=== PATIENT | female | born 1945 | race Caucasian/White ===

== ENCOUNTER → 2016-07-03 | Outpatient (REF) | payer MEDICARE, OTHER ==
[~2016-07-03] MED LIST: ATIV1TAB2; CALCCHW12; OMEP20TA7; SIMV10TA2; TEMA30CA; THERGRAN; VICO5TAB
== END | disposition home or self-care (01) ==
LOC: M LAB REF 12:17
PROVIDERS: ATTEND Internal Medicine Medical Oncology
DX: C50.919 Malignant neoplasm of unspecified site of unspecified female breast (principal)

== ENCOUNTER → 2016-08-21 | Outpatient (REF) | payer MEDICARE, OTHER | LOC: M LAB REF 13:01 | PROVIDERS: ATTEND Internal Medicine Medical Oncology | DX: C50.919 Malignant neoplasm of unspecified site of unspecified female breast (principal) ==

== ENCOUNTER → 2016-09-03 | Outpatient (CLI) | payer MEDICARE, OTHER ==
[~2016-09-03] MED LIST changes: +GASTROGRAFIN SOLUTION 30ML (Q9963) As Ordered ONE; +ISOVUE-370 76% 100ML VIAL (Q9967) As Ordered ONE
--- NOTE | 2016-09-03 10:21 | REP ---
CT of the chest with IV contrast, CT pulmonary angiography: Comparison 11/29/2015. There are no lung masses or nodules. There are no pleural effusions. There are patchy areas of ground-glass densities throughout the lung bermudez bilaterally, as an interval change. This is nonspecific and could represent airspace disease such as ARDS could be artifact from incomplete inspiratory effort. Cardiomegaly is again noted, unchanged from the prior studies. There is a small pericardial effusion versus pericardial thickening measuring up to 1.1 cm depth posteriorly on the left. There are a few borderline enlarged mediastinal nodes, not significantly changed. There are no emboli in the pulmonary trunk or in the central pulmonary arteries. There are no emboli in the pulmonary lobe or segment branches. Upper abdomen: The hepatic parenchyma, pancreas and spleen are unremarkable. Surgical clips in the gallbladder fossa. The adrenals and renal upper poles are unremarkable except for a small renal cortical cyst on the right, unchanged. Impression: There are no pulmonary emboli. There are scattered areas of ground-glass density as described in the body of the report, nonspecific, incomplete inspiratory effort versus air space disease such as a ARDS. No lung masses or nodules are identified. No pleural effusions. Chronic cardiomegaly is again noted. There is pericardial thickening versus pericardial effusion measuring up to 1.1 cm posteriorly on the left. There are a few borderline enlarged mediastinal nodes, unchanged from prior studies. Signed by Fox Garland MD 09/03/2016 10:13 A
--- NOTE | 2016-09-03 10:31 | REP ---
CT abdomen and pelvis with IV and oral contrast: Comparisons are 03/29/2014 and 10/08/2013. The comparison studies include the abdomen but not the pelvis. There is a also includes CT of the abdomen without the pelvis prior IV contrast. The hepatic parenchyma is homogeneous. There is no evidence of hepatic metastatic disease. There are surgical clips in the gallbladder fossa. Pancreas and spleen are normal size, homogeneous and unremarkable. There is a splenic artery aneurysm measuring 1.2 cm, unchanged. The adrenals are normal size unremarkable. The kidneys are unremarkable. The abdominal aorta is unremarkable. There is no bowel distension. No mesenteric adenopathy. There is no ascites. Pelvis: There is a hysterectomy. The vaginal cuff and adnexa are unremarkable. There is no pelvic adenopathy or ascites. There is sigmoid colon diverticulosis without diverticulitis. The bladder is unremarkable. There are no lytic, blastic or destructive skeletal changes. There is multilevel degenerative disc disease in the lumbar spine. Impression: No evidence of adenopathy, metastatic disease or ascites. Stable splenic artery aneurysm. Cholecystectomy and hysterectomy, unchanged. Diverticulosis without diverticulitis. Signed by Fox Garland MD 09/03/2016 10:22 A
== END ==
LOC: M RAD 08:04
PROVIDERS: ATTEND Internal Medicine Medical Oncology
DX: Z90.49 Acquired absence of other specified parts of digestive tract (principal); Z90.710 Acquired absence of both cervix and uterus; I72.9 Aneurysm of unspecified site; K57.90 Diverticulosis of intestine, part unspecified, without perforation or abscess without bleeding; I51.7 Cardiomegaly; J98.4 Other disorders of lung
CPT/HCPCS: 71275; 74178; Q9963; Q9967

== ENCOUNTER → 2016-09-04 | Outpatient (REF) | payer MEDICARE, OTHER ==
[~2016-09-04] MED LIST changes: -GASTROGRAFIN SOLUTION 30ML (Q9963) As Ordered ONE; -ISOVUE-370 76% 100ML VIAL (Q9967) As Ordered ONE
== END ==
LOC: M LAB REF 12:14
PROVIDERS: ATTEND Internal Medicine Medical Oncology
DX: C50.919 Malignant neoplasm of unspecified site of unspecified female breast (principal)

== ENCOUNTER → 2016-12-02 | Outpatient (CLI) | payer MEDICARE, OTHER ==
--- NOTE | 2016-12-02 10:58 | REP ---
CT of the chest without IV contrast: Comparison is 08/24/2016. The patchy ground-glass densities noted throughout the lung bermudez bilaterally on the comparison study have resolved. No persisting ground-glass densities. There are no acute infiltrates or effusions. There are no masses or nodules. There are borderline enlarged paratracheal nodes, unchanged. The azygos node measures 14 millimeters short axis. This measured 13 mm on 05/12/2015. The unenhanced thoracic aorta is unremarkable except for occasional calcified atheroma. Cardiac size is enlarged, unchanged. There is focal pericardial thickening at the cardiac apex versus a small pericardial effusion. In the upper abdomen. The unenhanced hepatic and visualized portion of the hepatic parenchyma is homogeneous. There are surgical clips in the gallbladder fossa. The unenhanced pancreas and spleen are unremarkable. The adrenals are unremarkable. Impression: The multiple ground-glass lung parenchymal densities identified previously have resolved. There are no nodules, masses, infiltrates or effusions. There is chronic cardiomegaly. There are borderline enlarged mediastinal nodes, unchanged. Focal pericardial thickening at the cardiac apex versus small pericardial effusion. Signed by Fox Garland MD 12/02/2016 10:50 A
== END ==
LOC: M RAD 08:12
PROVIDERS: ATTEND Internal Medicine Pulmonary Disease
DX: R91.8 Other nonspecific abnormal finding of lung field (principal); I51.7 Cardiomegaly

== ENCOUNTER → 2016-12-04 | Outpatient (REF) | payer MEDICARE, OTHER | LOC: M LAB REF 13:27 | PROVIDERS: ATTEND Internal Medicine Medical Oncology | DX: C50.919 Malignant neoplasm of unspecified site of unspecified female breast (principal) ==

== ENCOUNTER → 2017-03-05 | Outpatient (REF) | payer MEDICARE, OTHER | LOC: M LAB REF 12:30 | PROVIDERS: ATTEND Internal Medicine Medical Oncology | DX: C50.919 Malignant neoplasm of unspecified site of unspecified female breast (principal) ==

== ENCOUNTER → 2017-07-28 | Outpatient (CLI) | payer MEDICARE, OTHER | LOC: M CARPUL 08:06 | DX: Z51.81 Encounter for therapeutic drug level monitoring (principal); Z79.899 Other long term (current) drug therapy; C50.919 Malignant neoplasm of unspecified site of unspecified female breast; I31.3 Pericardial effusion (noninflammatory); I36.1 Nonrheumatic tricuspid (valve) insufficiency | CPT/HCPCS: 93306 ==

== ENCOUNTER → 2017-12-25 | Outpatient (REF) | payer MEDICARE, OTHER ==
[2017-12-27 00:12] LABS: CA 27.29 40.4 U/mL (0.0-38.6)
== END ==
LOC: M LAB REF 13:32
DX: C50.911 Malignant neoplasm of unspecified site of right female breast (principal); Z90.11 Acquired absence of right breast and nipple; Z90.12 Acquired absence of left breast and nipple
CPT/HCPCS: 86300

== ENCOUNTER → 2018-01-07 | Outpatient (CLI) | payer MEDICARE, OTHER | LOC: M RAD 10:36 | DX: C50.811 Malignant neoplasm of overlapping sites of right female breast (principal); I51.7 Cardiomegaly | CPT/HCPCS: 71250 ==

== ENCOUNTER → 2018-02-04 | Outpatient (REF) | payer MEDICARE, OTHER ==
[2018-02-04 14:01] LABS: INR 1.05; PARTIAL THROMBOPLASTIN TIME 30.5 SECONDS (25.4-37.6); PROTHROMBIN TIME 13.9 SECONDS (12.1-14.4)
== END ==
LOC: M LAB REF 13:13
DX: C50.911 Malignant neoplasm of unspecified site of right female breast (principal); Z90.11 Acquired absence of right breast and nipple; Z90.12 Acquired absence of left breast and nipple; Z79.01 Long term (current) use of anticoagulants
CPT/HCPCS: 85610

== ENCOUNTER → 2018-02-17 | Outpatient (CLI) | payer MEDICARE, OTHER ==
[~2018-02-17] MED LIST changes: -ATIV1TAB2; -CALCCHW12; +ISOVUE-300 61% 50ML VIAL (Q9967) As Ordered; +LIDOCAINE 2% MDV 20 ML VIAL As Ordered; +MIDAZOLAM INJ 2 MG/2 ML VIAL (J2250) As Ordered; -OMEP20TA7; -SIMV10TA2; -TEMA30CA; -THERGRAN; -VICO5TAB; +ceFAZolin 1GM INJ (J0690 PER 500MG) As Ordered; +fentaNYL 100 MCG/2 ML INJECTION (J3010) As Ordered
== END | disposition home or self-care (01) ==
LOC: M IRPRO 09:03
DX: T82.598A Other mechanical complication of other cardiac and vascular devices and implants, initial encounter (principal); T82.828A Fibrosis due to vascular prosthetic devices, implants and grafts, initial encounter; C50.919 Malignant neoplasm of unspecified site of unspecified female breast; C78.00 Secondary malignant neoplasm of unspecified lung; C77.9 Secondary and unspecified malignant neoplasm of lymph node, unspecified; I72.8 Aneurysm of other specified arteries; E78.00 Pure hypercholesterolemia, unspecified; Z87.891 Personal history of nicotine dependence
CPT/HCPCS: 36590

== ENCOUNTER → 2018-04-10 | Outpatient (CLI) | payer MEDICARE, OTHER | LOC: M RAD 09:41 | DX: R59.9 Enlarged lymph nodes, unspecified (principal); C50.911 Malignant neoplasm of unspecified site of right female breast; I73.00 Raynaud's syndrome without gangrene; R22.31 Localized swelling, mass and lump, right upper limb | CPT/HCPCS: 76882 ==

== ENCOUNTER → 2018-06-29 | Outpatient (CLI) | payer MEDICARE, OTHER ==
[~2018-06-29] MED LIST changes: +AMOX875T PO; +ATIV1TAB2; +CALC500T25 PO; +CALCCHW12; +CALTTAB6 PO; +CRES20TA PO; +EQ O20TA4 PO; +FLUO20CA8 PO; +HERC150I IV; -ISOVUE-300 61% 50ML VIAL (Q9967) As Ordered; -LIDOCAINE 2% MDV 20 ML VIAL As Ordered; -MIDAZOLAM INJ 2 MG/2 ML VIAL (J2250) As Ordered; +OMEP20TA7; +PENT400T47 PO; +ROSU5TAB4 PO; +SIMV10TA2; +TEMA30CA; +THERGRAN; +VICO5TAB; +VITMTA PO; -ceFAZolin 1GM INJ (J0690 PER 500MG) As Ordered; -fentaNYL 100 MCG/2 ML INJECTION (J3010) As Ordered
--- NOTE | 2018-06-30 06:42 | ECHO ---
DATE OF STUDY: 06/29/2018 REFERRING PHYSICIAN: Dr. Tricia Rendon INDICATION: Chemotherapy drugs that may affect the heart. HEIGHT: 163 cm WEIGHT: 78 kg 2D MEASUREMENTS: Left ventricle diastole 5.6 cm Ventricular septum 1.01 cm Posterior wall 1.11 cm Left atrium 4.7 cm Inferior vena cava 1.5 cm DOPPLER MEASUREMENTS: Aortic valve velocity 149 cm/s LVOT velocity 115 cm/s LVOT VTI 31.2 cm Very mild mitral regurgitation. Mitral E velocity 89.8 cm/s Mitral A velocity 133 cm/s Mitral deceleration time 201 ms Mild tricuspid regurgitation. Estimated right ventricle systolic pressure 40 mmHg assuming a right atrial pressure of 5 mmHg. Very mild pulmonic regurgitation. MITRAL ANNULAR TISSUE DOPPLER: E prime lateral 6.0 cm/s E prime septal 5.5 cm/s DESCRIPTION: Rhythm was sinus. Image quality was fair. No pericardial effusion. This was a 2D, M mode, color flow Doppler and pulse wave Doppler examination, included mitral annular tissue Doppler. CONCLUSIONS: 1. Normal left ventricle systolic function. LVEF 70-75% by visual estimated. Mildly dilated left ventricle at end diastole. Grade 1 LV diastolic dysfunction (impaired relaxation filling pattern). 2. Suggestive of moderate elevation of estimated right ventricle systolic pressure (40 mmHg). 3. Mild aortic valve sclerosis with a three-cuspid aortic valve. No aortic regurgitation. 4. Moderate left atrial dilatation. 5. Mild mitral annular calcification. Very mild mitral regurgitation.
== END ==
LOC: M CARPUL 08:27
PROVIDERS: ATTEND Internal Medicine Hematology & Oncology
DX: Z51.81 Encounter for therapeutic drug level monitoring (principal); Z79.899 Other long term (current) drug therapy

== ENCOUNTER → 2018-12-08 | Outpatient (CLI) | payer MEDICARE, OTHER ==
[~2018-12-08] MED LIST changes: -CRES20TA PO; +CRES20TA2 PO; +LIDO2.5C15 TOP
--- NOTE | 2018-12-09 08:15 | ECHO ---
DATE OF PROCEDURE: 12/08/2018 REFERRING PHYSICIAN: Tricia Rendon MD Height: 162 cm Weight: 82 kg INDICATION: Chemotherapy. DIMENSIONS: IVS 1.2 LV 5.9 LVPW 1.2 LA 4.7 Aorta 3.2 IVC 1.5 Mitral E wave velocity 86, A-wave 104 E prime septal 5.3 E prime lateral 5.9 FINDINGS: The study is of fair technical quality with difficult visualization. Left ventricle is mildly dilated. It appears to have normal contractility, I estimate LVEF 55-60% based on fair views. Mild left ventricular hypertrophy is present. Right ventricle does not appear enlarged. The left atrium is moderately enlarged. The right atrium appears normal based on limited views. Aortic valve has three cusps. It is minimally sclerotic but mobility is preserved. Mitral and tricuspid valves appear normal. Pulmonic valve was not seen. Small noncompressive pericardial effusion is noted. Inferior vena cava is normal size. Aortic root appears normal. Aortic arch and abdominal aorta were not well seen. Doppler interrogation of aortic valve reveals trivial stenosis (mean gradient 6 mmHg) and no insufficiency. There is trace mitral and tricuspid insufficiency. Calculated pulmonary artery pressure is within normal limits. Mitral inflow pattern and tissue Doppler imaging of mitral annulus reveal grade 1 diastolic dysfunction. CONCLUSIONS: 1. Study is of fair technical quality. 2. Dilated left ventricle with mild left ventricular hypertrophy and overall preserved LV systolic function, grade 1 diastolic dysfunction. 3. No hemodynamically significant valvular disease. 4. Normal central venous pressure. 5. Likely normal pulmonary artery pressure. 6. Small noncompressive pericardial effusion. COMMENTS: Subacute bacterial endocarditis (SBE) prophylaxis is not recommended.
== END ==
LOC: M CARPUL 10:06
PROVIDERS: ATTEND Internal Medicine Hematology & Oncology
DX: C50.911 Malignant neoplasm of unspecified site of right female breast (principal); I31.3 Pericardial effusion (noninflammatory); Z92.21 Personal history of antineoplastic chemotherapy

== ENCOUNTER → 2018-12-30 | Outpatient (CLI) | payer MEDICARE, OTHER ==
[~2018-12-30] MED LIST changes: +OMEP20TA17 PO; +RANI1SYP PO; -ROSU5TAB4 PO; +ROSU5TAB5 PO
--- NOTE | 2018-12-30 10:24 | REP ---
PET/CT: History: Restaging bilateral breast carcinoma. Comparisons: Comparison is made with the most recent prior PET/CT study June 24, 2018. TECHNIQUE: 45 minutes following the intravenous injection of a 9.29 mCi dose of F-18 FDG, three-dimensional PET scintigraphy is acquired from the skull base to the proximal thighs. Triplanar noncontrast CT scanning is acquired through the same anatomic range for attenuation correction, and image registration with scan parameters optimized to minimize radiation exposure to the patient. PET scintigraphy and CT datasets were fused and displayed on a workstation with multiplanar and projection display capability. PET/CT Findings: There is no abnormal hypermetabolic uptake in the head or neck region. No abnormal thoracic hypermetabolic uptake is seen. No abnormal uptake is seen in the abdomen or pelvis. Incidental findings include left hip prosthesis, right mastectomy, ventral abdominal hernia repair, cholecystectomy, left colonic diverticulosis, left maxillary sinus mucosal thickening, and a left-sided [id number] catheter. Impression: Negative PET scintigraphy. Electronically Signed by Fidel Fernandez MD 12/30/2018 10:44 A
== END ==
LOC: M PLARAD 07:40
PROVIDERS: ATTEND Internal Medicine Hematology & Oncology
DX: C50.811 Malignant neoplasm of overlapping sites of right female breast (principal); C50.812 Malignant neoplasm of overlapping sites of left female breast
CPT/HCPCS: 78815; A9552

== ENCOUNTER → 2019-06-07 | Outpatient (CLI) | payer MEDICARE, OTHER ==
[~2019-06-07] MED LIST changes: +ACET-683 PO; +ALEN35TA6 PO; +CENT1TAB9 PO; +FLUO20CA20 PO; -FLUO20CA8 PO
--- NOTE | 2019-06-09 09:59 | ECHO ---
DATE OF PROCEDURE: 06/07/2019 HEIGHT: 64 inches. WEIGHT: 184 pounds. BODY SURFACE AREA: 1.88 sq m OUTPATIENT REFERRING PHYSICIAN: Dr. Tricia Rendon INDICATION: Potentially cardiotoxic chemotherapy. MEASUREMENTS: 2-D Measurements: RV - 3.6 cm LV - 5.5 cm Septum -1.3 cm Posterior wall - 1.3 cm Aortic root - 3.5 cm LA - 5.1 cm LVEF - 60% Doppler Measurements: AV - 1.31 meters per second LVOT - 1.21 meters per second LVOT diameter - 2.0 cm MV-E - 71, A- 109, E/A ratio 0.6 Early mitral deceleration time - 216 milliseconds E prime medial 4.8, A prime medial 8.1, E prime lateral 5.8 Average, E/E prime ratio 13.4 PCWP - 18.5 mmHg PV - 0.8 meters per second Pulmonary artery acceleration time - 99 milliseconds RVSP - 37 mmHg IVC - 1.4 cm COMMENTS: Normal sinus rhythm without intraventricular conduction disturbance. Somewhat technically challenging but adequate information was still obtained. M-mode and two-dimensional echocardiography was performed with pulsed, continuous wave, color flow and tissue Doppler studies. Mild concentric left ventricle hypertrophy with normal wall motion. Moderately dilated left atrium with grade 1 LV diastolic dysfunction and mildly increased estimated mean left atrial pressure. Normal right heart chamber sizes and wall motion with Doppler evidence of mild pulmonary hypertension. Normal IVC size and collapse against an elevated central venous pressure. Mild aortic valvular sclerosis without functional abnormality. Normal aortic dimensions. Mild mitral annular calcification with normal leaflet thickness and excursion and no posterior systolic buckling. Only trace mitral insufficiency. Normal appearing tricuspid valve with mild insufficiency. Minuscule posterior pericardial effusion. No apparent intracardiac mass. The above test findings are not significantly changed from last November.
== END ==
LOC: M CARPUL 09:00
PROVIDERS: ATTEND Internal Medicine Hematology & Oncology
DX: C79.9 Secondary malignant neoplasm of unspecified site (principal)

== ENCOUNTER → 2019-06-24 | Outpatient (CLI) | payer MEDICARE, OTHER ==
[~2019-06-24] MED LIST changes: +GASTROGRAFIN SOLUTION 30ML (Q9963) As Ordered ONE; +ISOVUE-370 76% 100ML VIAL (Q9967) As Ordered ONE
--- NOTE | 2019-06-24 12:57 | REP ---
Clinical: Breast cancer. Restaging. Technique: Axial contrast enhanced images from the thoracic inlet to the upper abdomen with coronal and sagittal re-formations using 100 ml Isovue 370 intravenous contrast material. Comparison: 01/07/2018 Findings: Chronic interstitial changes and scattered scarring along with moderate bronchiectasis is again appreciated and relatively stable. No acute consolidation, significant nodule or mass lesion appreciated. No pleural effusion. No pneumothorax. Moderately prominent mediastinal lymph nodes remain stable. Atherosclerotic changes to the thoracic aorta and coronary arteries noted without aortic aneurysm or dissection. Mild cardiomegaly is again noted without pericardial effusion. Musculoskeletal structures demonstrate old healed left rib fractures without focal osseous abnormality. Impression: Chronic stable changes. No acute mediastinal or pleuroparenchymal process. No evidence for metastatic disease. Electronically Signed by Oleg Tarango MD 06/24/2019 12:49 P
--- NOTE | 2019-06-24 13:01 | REP ---
Clinical: Breast cancer. Restaging. Technique: Axial contrast enhanced images from the lung bases to the pubic symphysis using oral and 100 ml Isovue 370 intravenous contrast material with coronal and sagittal re-formations as well as delayed images of the abdomen. Comparison: 09/03/2016. Findings: Liver, spleen, pancreas, bilateral adrenal glands and kidneys are normal. Evidence of prior cholecystectomy noted. The enteric system is without obstruction or acute inflammatory process. Sigmoid diverticulosis noted without acute diverticulitis. Evaluation of the pelvis is limited due to metallic beam hardening artifact from left hip replacement, but there is evidence for prior hysterectomy and grossly normal appearance to the bladder. No ascites. No free air. No significant adenopathy. Musculoskeletal structures demonstrate degenerative changes without focal abnormality. Impression: 1. No acute abdominopelvic pathology appreciated. 2. No evidence for metastatic disease. 3. Diverticulosis without acute diverticulitis. 4. Somewhat limited evaluation of the pelvis due to beam-hardening artifact from left hip replacement. Electronically Signed by Oleg Tarango MD 06/24/2019 12:53 P
--- NOTE | 2019-06-24 14:54 | REP ---
WHOLE BODY RADIONUCLIDE BONE SCAN: HISTORY: Restaging breast carcinoma. COMPARISON STUDY: January 31, 2015. TECHNIQUE: 21.6 mCi technetium 99m MDP is injected and standard whole body bone scan imaging was acquired. FINDINGS: There is injection artifactual uptake in the antecubital fossa on the left. There is arthritic uptake in each wrist and in the right knee and to a lesser extent left knee. There is uptake in bilateral kidneys and in the urinary bladder. There is no evidence to suggest skeletal metastatic disease. IMPRESSION: No evidence of skeletal metastasis. Electronically Signed by Fidel Fernandez MD 06/24/2019 06:14 P
== END ==
LOC: M RAD 10:28
PROVIDERS: ATTEND Internal Medicine Hematology
DX: C50.011 Malignant neoplasm of nipple and areola, right female breast (principal); K57.30 Diverticulosis of large intestine without perforation or abscess without bleeding
CPT/HCPCS: 71260; 74177; 78306; Q9963; Q9967

== ENCOUNTER → 2019-09-15 | Outpatient (CLI) | payer MEDICARE, OTHER ==
[~2019-09-15] MED LIST changes: -GASTROGRAFIN SOLUTION 30ML (Q9963) As Ordered ONE; -ISOVUE-370 76% 100ML VIAL (Q9967) As Ordered ONE; +PROBCAP14 PO
--- NOTE | 2019-09-16 07:48 | ECHO ---
DATE OF PROCEDURE: 09/15/2019 DATE OF : 1945 AGE: 73 REFERRING PHYSICIAN: Dr. Arboleda REASON FOR STUDY: Chemotherapy drug monitoring. 2-D MEASUREMENTS: IVS: 1.1 cm LVPW: 1.1 cm LV: 5.38 cm LA: 5.0 cm Aorta: 3.5 cm IVC: 1.81 cm DOPPLER MEASUREMENTS: Peak velocity across the aortic valve: 1.5 m/s Peak gradient across the aortic valve: 9 mmHg Mean gradient across the aortic valve: 6 mmHg Mitral E: 0.67 Mitral A: 1.0 Ratio: 0.6 Maximum tricuspid valve velocity: 3.2 m/s 2-D COMMENTS: 1. Normal left ventricular size, wall thickness, and low normal global left ventricular systolic function. The estimated left ventricular systolic ejection fraction is 55-60%. 2. Mildly to moderately enlarged left atrium. The right heart chambers also appeared to be mildly enlarged in limited views. The right ventricular free wall may be hypokinetic. 3. The atrial septum appeared to be normal without evidence of defect or shunt. 4. Normal aortic root. 5. A small to moderate pericardial effusion was noted, no evidence of cardiac tamponade. 6. Mildly calcified aortic valve with normal leaflet excursion. Mildly calcified mitral annulus with normal anterior mitral valve leaflet motion. Normal tricuspid valve and pulmonic valves. The proximal pulmonary artery branches also appear to be normal in limited views. 7. The inferior vena cava was normal in size, central venous pressure is most likely normal. DOPPLER: Detects mild mitral regurgitation and moderate tricuspid regurgitation. The calculated pulmonary artery systolic pressure varies between 40-50 mmHg. Abnormal relaxation pattern was noted across the mitral valve leaflets as well as the mitral valve annulus consistent with features of grade 1 left ventricular diastolic dysfunction. IMPRESSION: 1. Low normal global left ventricular systolic function. There are some features of grade 1 left ventricular diastolic dysfunction manifested by abnormal relaxation. 2. Mildly to moderately enlarged left atrium with mild mitral regurgitation and mitral annulus calcification. 3. Aortic valve sclerosis with trivial aortic stenosis. No aortic regurgitation. 4. Moderate tricuspid regurgitation with moderate pulmonary hypertension. The right heart chambers appeared to be mildly enlarged in limited views with some features of right ventricular systolic dysfunction. 5. Small to moderate pericardial effusion was noted, no evidence of cardiac tamponade. 6. Global longitudinal strain was calculated at 15.2, putting the patient at a higher risk to develop heart failure in the future so she needs to be closely monitored. 7. She also will need to be monitored for her pericardial effusion and I recommend to reassess it within 3-6 months or if the patient becomes symptomatic with shortness of breath, syncope or near syncope. Most recent echocardiogram on 06/07/2019, no remarkable changes, but GLS at that time was markedly abnormal, probably artifactual.
== END ==
LOC: M CARPUL 09:08
PROVIDERS: ATTEND Internal Medicine Hematology
DX: C79.9 Secondary malignant neoplasm of unspecified site (principal); C50.911 Malignant neoplasm of unspecified site of right female breast

== ENCOUNTER → 2019-10-21 | Outpatient (RCR) | payer MEDICARE, OTHER | LOC: M PT 10-19 13:52 | PROVIDERS: ATTEND Internal Medicine Hematology | DX: C50.919 Malignant neoplasm of unspecified site of unspecified female breast (principal); M54.5 Low back pain | CPT/HCPCS: 97110; 97162; G0283 ==

== ENCOUNTER 2019-11-18 09:06 | Outpatient (RCR) | payer MEDICARE, OTHER | END 2019-11-21 | LOC: M PT 09:06 | PROVIDERS: ATTEND Internal Medicine Hematology | DX: Z51.89 Encounter for other specified aftercare (principal); C50.911 Malignant neoplasm of unspecified site of right female breast; M54.9 Dorsalgia, unspecified | CPT/HCPCS: 97035; 97110; G0283 ==

== ENCOUNTER → 2019-12-27 | Outpatient (CLI) | payer MEDICARE, OTHER ==
[~2019-12-27] MED LIST changes: +GASTROGRAFIN SOLUTION 30ML (Q9963) As Ordered ONE; +ISOVUE-370 76% 100ML VIAL As Ordered ONE
--- NOTE | 2019-12-27 14:06 | REP ---
REASON: History of metastatic breast carcinoma. COMPARISON: Multiple, all reviewed, the latest 06/24/2019. CONTRAST: 100 mL Isovue 370. There is mediastinal adenopathy status quo. No hilar adenopathy has developed. There are no pleural or pericardial effusions. The imaged osseous structures are unchanged. Evaluation of the lung bermudez shows stable appearing scattered asymmetric densities with cylindrical bronchiectasis heaviest in the lung bases. No new abnormal nodules, masses, or opacities have developed. IMPRESSION: Stable chronic changes as described above. Electronically Signed by Wallace Nj DO 12/27/2019 02:40 P
--- NOTE | 2019-12-27 14:14 | REP ---
REASON: History of metastatic breast carcinoma. Followup exam. All priors reviewed, latest 06/24/2019. CONTRAST: 100 mL Isovue 370. The liver, spleen, pancreas, adrenal glands and kidneys are unchanged. The abdominal aorta and para-aortic regions are unchanged. The bowel loops and their mesenteries are essentially unchanged. There is no intra-abdominal mass or adenopathy. There is no free fluid or free air. Bone window technique throughout the examination shows stable appearing chronic changes. IMPRESSION: No acute disease. Electronically Signed by Wallace Nj DO 12/27/2019 02:41 P
== END ==
LOC: M RAD 09:05
PROVIDERS: ATTEND Specialist
DX: R59.0 Localized enlarged lymph nodes (principal); J47.9 Bronchiectasis, uncomplicated; J98.4 Other disorders of lung; C79.81 Secondary malignant neoplasm of breast
CPT/HCPCS: 71260; 74160; Q9963; Q9967

== ENCOUNTER → 2020-04-11 | Outpatient (CLI) | payer MEDICARE, OTHER ==
[~2020-04-11] MED LIST changes: +ALEN35TA54 PO; -ALEN35TA6 PO; +BACL10TA2 PO; -GASTROGRAFIN SOLUTION 30ML (Q9963) As Ordered ONE; -ISOVUE-370 76% 100ML VIAL As Ordered ONE
--- NOTE | 2020-04-11 13:26 | REP ---
INDICATION: BILATERAL HAND PAIN, UNSPECIFIED COMPARISON: None. TECHNIQUE: AP and lateral views of the right and left hand. FINDINGS: Mild symmetric generalized osteopenia and mild age related arthritic changes include subtle subchondral sclerosis, mild spurring and joint space narrowing primarily involving the right and left 2nd and 4th DIP joints and joints of the 1st digit. No evidence for fracture or dislocation. No subcutaneous emphysema or foreign body. IMPRESSION: Symmetric generalized osteopenia and scattered arthritic degenerative changes. <Electronically signed by Oleg Tarango > 04/11/20 [id number]
[2020-04-11 13:56] LABS: BASO % 0.4 % (0.0-1.0); EOS % 0.4 % (0.0-3.0); HEMATOCRIT 40.5 % (36.0-47.0); HEMOGLOBIN 12.2 g/dl (12.0-15.5); LYMPH # 1.8 10^3/uL (1.5-5.0); LYMPH % 33.8 % (24.0-44.0); MEAN CORPUSCULAR HEMOGLOBIN 26.1 pg (27.0-33.0); MEAN CORPUSCULAR HGB CONC 30.1 g/dl (32.0-36.5); MEAN CORPUSCULAR VOLUME 86.7 fl (80.0-96.0); MONO # 0.9 10^3/uL (0.0-0.8); MONO % 16.5 % (0.0-5.0); NEUTROPHILS # 2.5 10^3/uL (1.5-8.5); NEUTROPHILS % 47.9 % (36.0-66.0); RED BLOOD COUNT 4.67 10^6/uL (4.00-5.40); WHITE BLOOD COUNT 5.2 10^3/uL (4.0-10.0)
[2020-04-11 14:05] LABS: PLATELET COUNT, AUTOMATED 83 10^3/uL (150-450)
[2020-04-11 15:16] LABS: ERYTHROCYTE SEDIMENTATION RATE 12 mm/hr (0-30)
[2020-04-11 16:19] LABS: ALT/SGPT 14 U/L (12-78); C REACTIVE PROTEIN QUANTITATIV < 0.30 MG/DL (0.00-0.30); COMPLEMENT C3 101 MG/DL (90-180); COMPLEMENT C4 25 MG/DL (10-40); CREATININE FOR GFR 0.77 MG/DL (0.55-1.30); GLOMERULAR FILTRATION RATE > 60.0 (>39); RHEUMATOID FACTOR QUANT 17.9 IU/ML (<15.0); URIC ACID 4.7 MG/DL (2.6-6.0)
[2020-04-14 19:06] LABS: ANTI CENTROMERE ANTIBODY >8.0 AI (0.0-0.9); ANTI DOUBLE STRAND-DNA AB <1 IU/mL (0-9); ANTI DS-DNA AB Negative (Negative); ANTI JO-1 ANTIBODIES <20 Units (<20); ANTI SCLERODERMA ANTIBODIES 0.3 AI (0.0-0.9); ANTI-HISTONE ANTIBODIES 0.4 Units (0.0-0.9); ANTINUCLEAR ANTIBODIES DIRECT Positive (Negative); CYCLIC CITRULLINATED PEPTIDE 6 units (0-19); RNP ANTIBODIES 2.3 AI (0.0-0.9); SJOGREN'S ANTI SS-A 0.9 AI (0.0-0.9); SJOGREN'S ANTI SS-B <0.2 AI (0.0-0.9); SMITH ANTIBODIES <0.2 AI (0.0-0.9)
== END ==
LOC: M RAD 12:51
PROVIDERS: ATTEND Physician Assistant
DX: I73.00 Raynaud's syndrome without gangrene (principal); M85.841 Other specified disorders of bone density and structure, right hand; M85.842 Other specified disorders of bone density and structure, left hand; M19.041 Primary osteoarthritis, right hand; M19.042 Primary osteoarthritis, left hand

== ENCOUNTER → 2020-06-28 | Outpatient (REF) | payer MEDICARE, OTHER ==
[2020-06-28 11:36] LABS: CHOLESTEROL RISK RATIO 4.283 (<5)
== END ==
LOC: M LAB REF 10:14
PROVIDERS: ATTEND Internal Medicine
DX: D64.9 Anemia, unspecified (principal); E78.5 Hyperlipidemia, unspecified

== ENCOUNTER → 2020-07-19 | Outpatient (REF) | payer MEDICARE, OTHER ==
[2020-07-19 11:31] LABS: APPEARANCE, URINE CLEAR (CLEAR); BACTERIA, URINE AUTO NEGATIVE (NEGATIVE); BILIRUBIN, URINE AUTO NEGATIVE (NEGATIVE); BLOOD, URINE BLOOD NEGATIVE (NEGATIVE); COLOR, URINE YELLOW (YELLOW); GLUCOSE, URINE (UA) AUTO NEGATIVE (NEGATIVE); KETONE, URINE AUTO NEGATIVE (NEGATIVE); LEUKOCYTE ESTERASE, URINE AUTO NEGATIVE (NEGATIVE); NITRITE, URINE AUTO NEGATIVE (NEGATIVE); PROTEIN, URINE AUTO NEGATIVE (NEGATIVE); RBC, URINE AUTO 3 /HPF (0-3); SPECIFIC GRAVITY URINE AUTO 1.016 (1.002-1.035); SQUAMOUS EPITHELIAL CELL UR AU 0 /HPF (0-6); UROBILINOGEN, URINE AUTO 0.2 mg/dL (0.0-2.0); WBC, URINE AUTO 3 /HPF (0-3)
[2020-07-19 11:34] LABS: BASO % 0.3 % (0.0-1.0); EOS % 0.5 % (0.0-3.0); HEMATOCRIT 38.2 % (36.0-47.0); HEMOGLOBIN 11.5 g/dl (12.0-15.5); LYMPH # 1.5 10^3/uL (1.5-5.0); LYMPH % 40.4 % (24.0-44.0); MEAN CORPUSCULAR HGB CONC 30.1 g/dl (32.0-36.5); MEAN CORPUSCULAR VOLUME 86.4 fl (80.0-96.0); MONO # 0.6 10^3/uL (0.0-0.8); MONO % 16.3 % (0.0-5.0); NEUTROPHILS # 1.6 10^3/uL (1.5-8.5); RED BLOOD COUNT 4.42 10^6/uL (4.00-5.40); WHITE BLOOD COUNT 3.7 10^3/uL (4.0-10.0)
[2020-07-19 11:38] LABS: PLATELET COUNT, AUTOMATED 81 10^3/uL (150-450)
[2020-07-19 12:08] LABS: CREATININE,RANDOM URINE 88.8 MG/DL; TOTAL PROTEIN,RANDOM URINE 16.1 MG/DL (0.0-12.0)
[2020-07-19 12:09] LABS: ERYTHROCYTE SEDIMENTATION RATE 12 mm/hr (0-30)
[2020-07-19 13:24] LABS: C REACTIVE PROTEIN QUANTITATIV < 0.30 MG/DL (0.00-0.30); COMPLEMENT C3 102 MG/DL (90-180); COMPLEMENT C4 27 MG/DL (10-40); CPK CREATINE PHOSPHOKINASE 42 U/L (26-192); IRON (FE) 57 UG/DL (50-170); PHOSPHORUS LEVEL 3.4 MG/DL (2.5-4.9); RHEUMATOID FACTOR QUANT 14.4 IU/ML (<15.0); TOTAL 25(OH) VITAMIN D 34.4 NG/ML (30.0-100.0)
[2020-07-19 13:31] LABS: VITAMIN B12 LEVEL 645 PG/ML (247-911)
[2020-07-25 15:12] LABS: ANA (HEP2) Positive (.); ANTI CENTROMERE ANTIBODY >8.0 AI (0.0-0.9); ANTI DS-DNA AB Positive (Negative); ANTI SCLERODERMA ANTIBODIES 0.3 AI (0.0-0.9); ANTI SMITH(Sm) AB <20 Units (<20); ANTI-HISTONE ANTIBODIES 0.4 Units (0.0-0.9); ANTI-U1 RNP AB <20 Units (<20); BETA-2 GLYCOPROTEIN I ABY IGA <9 (0-25); BETA-2 GLYCOPROTEIN I ABY IGG <9 (0-20); BETA-2 GLYCOPROTEIN I ABY IGM <9 (0-32); CARDIOLIPIN IGA ANTIBODY <9 APL U/mL (0-11); CARDIOLIPIN IGG ANTIBODY <9 GPL U/mL (0-14); CARDIOLIPIN IGM ANTIBODY <9 MPL U/mL (0-12); COMPLEMENT TOTAL (CH50) 51 U/mL (>41); CYCLIC CITRULLINATED PEPTIDE 9 units (0-19); SSB SJOGRENS B <0.2 AI (0.0-0.9)
[2020-07-27 10:47] LABS: DRVV SCREEN 40.3 SEC
== END ==
LOC: M LAB REF 10:41
PROVIDERS: ATTEND Internal Medicine
DX: R76.8 Other specified abnormal immunological findings in serum (principal); M25.40 Effusion, unspecified joint; M79.10 Myalgia, unspecified site

== ENCOUNTER → 2020-07-19 | Outpatient (CLI) | payer MEDICARE, OTHER ==
--- NOTE | 2020-07-19 16:35 | REP ---
INDICATION: UNILATERAL PRIMARY OSTEOARTHRITIS, UNSPECIFIED KNEE COMPARISON: None TECHNIQUE: Four views of the left knee and four views of the right knee FINDINGS: Four views of the left knee show tricompartmental marginal osteophytosis with patellofemoral joint space narrowing and mild medial compartmental narrowing. There is no acute fracture, dislocation, or subluxation. Four views of the right knee show tricompartmental marginal osteophytosis and mild medial compartmental narrowing and moderate to severe patellofemoral joint space narrowing. There is no acute fracture, dislocation, or subluxation. IMPRESSION: DJD bilaterally as described above. <Electronically signed by Wallace Nj > 07/19/20 [id number]
== END ==
LOC: M RAD 13:24
PROVIDERS: ATTEND Internal Medicine
DX: M17.0 Bilateral primary osteoarthritis of knee (principal)

== ENCOUNTER → 2020-10-13 | Outpatient (CLI) | payer MEDICARE, OTHER ==
[~2020-10-13] MED LIST changes: +MECL-136 PO
== END ==
LOC: M CARPUL 11:12
PROVIDERS: ATTEND Specialist
DX: Z79.899 Other long term (current) drug therapy (principal); C50.919 Malignant neoplasm of unspecified site of unspecified female breast

== ENCOUNTER → 2020-12-26 | Outpatient (REF) | payer MEDICARE, OTHER ==
[~2020-12-26] MED LIST changes: +HYDR200T3 PO; +LIDO1CRE42 TOP; -LIDO2.5C15 TOP
[2020-12-26 10:46] LABS: CHOLESTEROL RISK RATIO 2.259 (<5)
== END ==
LOC: M LAB REF 10:02
PROVIDERS: ATTEND Internal Medicine
DX: E78.00 Pure hypercholesterolemia, unspecified (principal)

== ENCOUNTER → 2021-01-26 | Outpatient (CLI) | payer MEDICARE, OTHER ==
[~2021-01-26] MED LIST changes: -ALEN35TA54 PO; +ALEN35TA56 PO; +AMOX875T2; +BETA0.0543; +FLUO-96 PO; -FLUO20CA20 PO
== END ==
LOC: M CARPUL 08:44
PROVIDERS: ATTEND Internal Medicine Medical Oncology
DX: C50.919 Malignant neoplasm of unspecified site of unspecified female breast (principal); Z79.899 Other long term (current) drug therapy

== ENCOUNTER → 2021-02-01 | Outpatient (CLI) | payer MEDICARE, OTHER ==
[~2021-02-01] MED LIST changes: -AMOX875T2; -BETA0.0543; -FLUO-96 PO; +FLUO20CA20 PO; +GASTROGRAFIN SOLUTION 30ML (Q9963) As Ordered ONE; +ISOVUE-370 76% 100ML VIAL As Ordered ONE
--- NOTE | 2021-02-01 13:49 | REP ---
INDICATION: BREAST CA W/METS. COMPARISON: Chest CT studies dated 12/27/2019 and 01/07/2018 and PET scan dated 12/30/2018. TECHNIQUE: Chest CT with IV contrast. FINDINGS: There is a right mastectomy. This is unchanged. There are no lung masses or nodules. There are no infiltrates or pleural effusions. There is bronchiectasis, unchanged. There are borderline enlarged mediastinal nodes, unchanged from 01/07/2018. There is no hilar lymph node enlargement. No axillary lymph node enlargement. Thoracic aorta is unremarkable. Cardiac size is enlarged, unchanged. There is no pericardial effusion. There are no lytic, blastic or destructive skeletal changes. There is a left IJ central venous catheter with the tip in the superior vena cava, unchanged. IMPRESSION: Stable findings. No change from the comparison studies. <Electronically signed by Fox Garland > 02/01/21 [id number]
--- NOTE | 2021-02-01 14:00 | REP ---
INDICATION: BREAST CA W/METS. COMPARISON: Abdomen/pelvis CT dated 06/24/2019 and PET scan dated 12/30/2018. TECHNIQUE: Abdomen/pelvis CT with IV contrast and bowel contrast. FINDINGS: The hepatic parenchyma is homogeneous. There are surgical clips in the gallbladder fossa this is unchanged. The pancreas and spleen are unremarkable and unchanged. The adrenals and kidneys are unremarkable and unchanged The abdominal aorta is unremarkable. There is no periaortic adenopathy or mass. There is wall thickening of the distal ascending colon and transverse colon as an interval change, nonspecific, but could represent colitis in the appropriate clinical setting. There is diverticulosis without diverticulitis of the descending colon and sigmoid colon. This is unchanged. There is surgical mesh in the midline of the abdomen. This is unchanged. The mesentery is unremarkable. There is no ascites. There is no mesenteric adenopathy. Pelvis: There is no ascites or adenopathy. There is a left hip arthroplasty, as previously, resulting in beam hardening artifact. Additional images are performed with beam hardening artifact reduction software. No lytic, blastic or destructive skeletal changes are identified. There is multilevel degenerative disc disease in the lumbar spine. IMPRESSION: No change from the prior study. There is no evidence of adenopathy, ascites or metastatic disease. There are findings compatible with infectious versus inflammatory colitis of the ascending colon and transverse colon in the appropriate clinical setting. Descending colon/sigmoid colon diverticulosis without diverticulitis, unchanged. Left hip arthroplasty, unchanged. Multilevel degenerative disc disease of the lumbar spine, unchanged. <Electronically signed by Fox Garland > 02/01/21 [id number]
--- NOTE | 2021-02-01 14:53 | REP ---
INDICATION: BREAST CA W/METS. COMPARISON: 06/24/2019. TECHNIQUE/RADIOTRACER AND DOSE: The study is performed with MDP radiolabeled with 22 mCi of technetium 99 M. FINDINGS: There is a degenerative pattern of uptake in the shoulders, thumb bases, knees and ankles, as previously. There is focal uptake in left ribs anteriorly involving the approximate 8 through 11 ribs with the uptake foci being 1 above the other, compatible with trauma. It is unchanged from the comparison study. No other uptake foci are identified. IMPRESSION: No evidence of metastatic uptake. There is a stable pattern of degenerative uptake. There is likely posttraumatic uptake in left ribs, unchanged. <Electronically signed by Fox Garland > 02/01/21 [id number]
== END ==
LOC: M RAD 10:49
PROVIDERS: ATTEND Internal Medicine Medical Oncology
DX: C50.919 Malignant neoplasm of unspecified site of unspecified female breast (principal); K57.30 Diverticulosis of large intestine without perforation or abscess without bleeding; M51.36 Other intervertebral disc degeneration, lumbar region
CPT/HCPCS: 71260; 74177; 78306; A9503; Q9963; Q9967

== ENCOUNTER → 2021-05-15 | Outpatient (CLI) | payer MEDICARE, OTHER ==
[~2021-05-15] MED LIST changes: +AMOX875T2; -GASTROGRAFIN SOLUTION 30ML (Q9963) As Ordered ONE; -ISOVUE-370 76% 100ML VIAL As Ordered ONE
--- NOTE | 2021-05-16 07:20 | ECHO ---
ECHOCARDIOGRAM DATE OF PROCEDURE: 05/15/2021 Age: Gender: F Height: 162 cm Weight: 82 kg REFERRING PHYSICIAN: Cali Herrera MD INDICATION: Chemotherapy MEASUREMENTS: IVS: 1.2 LV: 5.0 LVPW: 1.2 LA: 5.5 Aorta: 3.1 IVC: 1.8 Mitral E wave velocity is 77; A wave 97 E prime septal: 4.0 E prime lateral: 5.1 FINDINGS: This study is of fair technical quality with somewhat limited visualization; underlying sinus rhythm. Left ventricle is normal size. Mild left ventricular hypertrophy is noted. Overall preserved left ventricular (LV) systolic function. Computer calculated left ventricular ejection fraction (LVEF) was 58% which appears consistent with my visual estimate. The right ventricle is of normal size and systolic function. Left atrium is severely enlarged. Right atrium appears at least mildly enlarged. Aortic valve is tricuspid. It is heavily sclerotic but mobility is relatively preserved. There are also degenerative abnormalities of mitral valve with some thickening of leaflets but mobility is intact. Tricuspid valve appears normal. Pulmonic valve was not well seen. Small noncompressive pericardial effusion is noted. Inferior vena cava is normal size and appropriately collapses with inspiration indicative of normal central venous pressure. Aortic root is normal. Aortic arch and abdominal aorta were not well seen. Doppler interrogation of aortic valve reveals mild insufficiency and no significant stenosis. There is possibly mild to moderate mitral insufficiency and mild tricuspid insufficiency. Calculated pulmonary artery pressure is in the 30s corresponding to mild pulmonary hypertension. Mitral inflow pattern on tissue Doppler imaging of mitral annulus revealed grade 1 diastolic dysfunction. CONCLUSIONS: 1. Study is of fair technical quality. Underlying sinus rhythm. 2. Normal left ventricle size with mild left ventricular hypertrophy and preserved left ventricular systolic function. Calculated left ventricular ejection fraction (LVEF) 58%. Grade 1 diastolic dysfunction. Global longitudinal strain -14.9% (mildly reduced). 3. Normal right ventricular size and systolic function. 4. Aortic sclerosis with mild insufficiency and no significant stenosis. 5. Mild to moderate mitral insufficiency. 6 . Normal central venous pressure and at least borderline pulmonary hypertension. 7. A small, noncompressive pericardial effusion. MTDD
== END ==
LOC: M CARPUL 09:38
PROVIDERS: ATTEND Specialist
DX: Z51.11 Encounter for antineoplastic chemotherapy (principal); C50.911 Malignant neoplasm of unspecified site of right female breast

== ENCOUNTER → 2021-08-14 | Outpatient (REF) | payer MEDICARE, OTHER ==
[~2021-08-14] MED LIST changes: +BETA0.0543; +FLUO-96 PO; -FLUO20CA20 PO
[2021-08-14 15:08] LABS: BASO % 0.4 % (0.0-1.0); EOS % 0.5 % (0.0-3.0); HEMOGLOBIN 11.7 g/dl (12.0-15.5); LYMPH # 1.8 10^3/uL (1.5-5.0); LYMPH % 33.3 % (24.0-44.0); MEAN CORPUSCULAR HEMOGLOBIN 26.4 pg (27.0-33.0); MEAN CORPUSCULAR VOLUME 87.8 fl (80.0-96.0); MONO # 0.9 10^3/uL (0.0-0.8); NEUTROPHILS # 2.6 10^3/uL (1.5-8.5); NEUTROPHILS % 48.1 % (36.0-66.0); RED BLOOD COUNT 4.44 10^6/uL (4.00-5.40); WHITE BLOOD COUNT 5.5 10^3/uL (4.0-10.0)
[2021-08-14 15:09] LABS: PLATELET COUNT, AUTOMATED 69 10^3/uL (150-450)
[2021-08-14 15:25] LABS: ALBUMIN 3.8 GM/DL (3.2-5.2); ALT/SGPT 15 U/L (12-78); BILIRUBIN,DIRECT 0.2 MG/DL (0.0-0.2); BILIRUBIN,TOTAL 0.9 MG/DL (0.2-1.0); BLOOD UREA NITROGEN 15 MG/DL (7-18); CALCIUM LEVEL 8.6 MG/DL (8.8-10.2); CARBON DIOXIDE LEVEL 25 MEQ/L (21-32); CHLORIDE LEVEL 109 MEQ/L (98-107); COMPLEMENT C3 111 MG/DL (90-180); COMPLEMENT C4 26 MG/DL (10-40); CREATININE FOR GFR 0.84 MG/DL (0.55-1.30); GLOMERULAR FILTRATION RATE > 60.0 (>39); GLUCOSE, FASTING 86 MG/DL (70-100); IRON (FE) 43 UG/DL (50-170); POTASSIUM SERUM 4.1 MEQ/L (3.5-5.1); SODIUM LEVEL 142 MEQ/L (136-145); TOTAL PROTEIN 6.8 GM/DL (6.4-8.2)
[2021-08-14 15:35] LABS: TOTAL 25(OH) VITAMIN D 22.4 NG/ML (30.0-100.0)
[2021-08-14 15:39] LABS: ERYTHROCYTE SEDIMENTATION RATE 9 mm/hr (0-30)
[2021-08-16 15:09] LABS: COMPLEMENT TOTAL (CH50) 60 U/mL (>41)
== END ==
LOC: M LAB REF 14:52
PROVIDERS: ATTEND Internal Medicine
DX: M34.9 Systemic sclerosis, unspecified (principal); M79.10 Myalgia, unspecified site; D50.9 Iron deficiency anemia, unspecified

== ENCOUNTER → 2021-08-22 | Outpatient (CLI) | payer MEDICARE, OTHER | LOC: M CARPUL 11:02 | PROVIDERS: ATTEND Specialist | DX: C50.911 Malignant neoplasm of unspecified site of right female breast (principal) ==

== ENCOUNTER → 2021-11-05 | Outpatient (CLI) | payer MEDICARE, OTHER ==
[~2021-11-05] MED LIST changes: +ERGO500029; +FERR325T19; +GABA-1171; +ISOVUE-370 76% 100ML VIAL As Ordered ONE; +MINO100C4; +OMEP-173; +TRIA1CR80
== END ==
LOC: M RAD 10:10
PROVIDERS: ATTEND Specialist
DX: C50.919 Malignant neoplasm of unspecified site of unspecified female breast (principal)
CPT/HCPCS: 71260; Q9967

== ENCOUNTER → 2021-11-13 | Outpatient (REF) | payer MEDICARE, OTHER ==
[~2021-11-13] MED LIST changes: -ISOVUE-370 76% 100ML VIAL As Ordered ONE
== END ==
LOC: M LAB REF 14:01
PROVIDERS: ATTEND Internal Medicine
DX: E55.9 Vitamin D deficiency, unspecified (principal)

== ENCOUNTER → 2022-01-04 | Outpatient (REF) | payer MEDICARE, OTHER ==
[~2022-01-04] MED LIST changes: +CEPH500C PO; +HYDR-3715 PO; +SILD20TA11
== END ==
LOC: M SFHCWOUN 15:44
PROVIDERS: ATTEND Surgery
DX: T23.322A Burn of third degree of single left finger (nail) except thumb, initial encounter (principal); M86.142 Other acute osteomyelitis, left hand; X58.XXXA Exposure to other specified factors, initial encounter; Y92.9 Unspecified place or not applicable; Y93.9 Activity, unspecified; Y99.9 Unspecified external cause status

== ENCOUNTER → 2022-02-22 | Outpatient (CLI) | payer MEDICARE, OTHER ==
[~2022-02-22] MED LIST changes: +LEVO1TAB40
== END ==
LOC: M RAD 13:27
PROVIDERS: ATTEND Specialist
DX: C50.911 Malignant neoplasm of unspecified site of right female breast (principal); Z90.11 Acquired absence of right breast and nipple; J44.9 Chronic obstructive pulmonary disease, unspecified

== ENCOUNTER → 2022-03-06 | Outpatient (REF) | payer MEDICARE, OTHER | LOC: M LAB REF 18:43 | PROVIDERS: ATTEND Internal Medicine | DX: D50.9 Iron deficiency anemia, unspecified (principal) ==

== ENCOUNTER → 2022-04-02 | Outpatient (REF) | payer MEDICARE, OTHER ==
[2022-04-02 14:53] LABS: BASO % 0.3 % (0.0-1.0); EOS % 0.5 % (0.0-3.0); HEMATOCRIT 36.9 % (36.0-47.0); HEMOGLOBIN 11.4 g/dl (12.0-15.5); LYMPH # 1.4 10^3/uL (1.5-5.0); LYMPH % 36.2 % (24.0-44.0); MEAN CORPUSCULAR HGB CONC 30.9 g/dl (32.0-36.5); MEAN CORPUSCULAR VOLUME 87.2 fl (80.0-96.0); MONO # 0.8 10^3/uL (0.0-0.8); NEUTROPHILS # 1.7 10^3/uL (1.5-8.5); NEUTROPHILS % 42.5 % (36.0-66.0); RED BLOOD COUNT 4.23 10^6/uL (4.00-5.40)
[2022-04-02 14:56] LABS: APPEARANCE, URINE MANUAL CLEAR (CLEAR); COLOR, URINE MANUAL YELLOW (YELLOW)
[2022-04-02 14:57] LABS: BILIRUBIN, URINE MANUAL NEGATIVE (NEGATIVE); BLOOD URINE MANUAL POSITIVE (NEGATIVE); GLUCOSE, URINE (UA) MANUAL NEGATIVE (NEGATIVE); KETONE, URINE MANUAL NEGATIVE (NEGATIVE); LEUKOCYTE ESTERASE, URINE MAN NEGATIVE (NEGATIVE); NITRITE, URINE MANUAL NEGATIVE (NEGATIVE); PROTEIN, URINE MANUAL TRACE mg/dL (NEGATIVE); UROBILINOGEN, URINE MANUAL NORMAL (NORMAL)
[2022-04-02 14:59] LABS: PLATELET COUNT, AUTOMATED 62 10^3/uL (150-450)
[2022-04-02 15:10] LABS: BACTERIA, URINE MOD AMOUNT; MUCUS, URINE MOD AMOUNT (NEGATIVE); RENAL EPITHELIAL CELLS, URINE SMALL AMOUNT /hpf; SQUAMOUS EPITHELIAL CELL URINE SMALL AMOUNT /hpf (SMALL AMT); TRANSITIONAL EPI CELLS, URINE SMALL AMOUNT /hpf
[2022-04-02 15:11] LABS: HYALINE CAST, URINE 20-30 /lpf (0-1)
[2022-04-02 15:33] LABS: TOTAL PROTEIN,RANDOM URINE 41.4 MG/DL (0.0-12.0)
[2022-04-02 15:52] LABS: ALBUMIN 3.8 GM/DL (3.2-5.2); ALT/SGPT 15 U/L (12-78); BILIRUBIN,DIRECT 0.3 MG/DL (0.0-0.2); BILIRUBIN,TOTAL 1.2 MG/DL (0.2-1.0); BLOOD UREA NITROGEN 11 MG/DL (7-18); CARBON DIOXIDE LEVEL 26 MEQ/L (21-32); CHLORIDE LEVEL 111 MEQ/L (98-107); COMPLEMENT C3 108 MG/DL (90-180); COMPLEMENT C4 28 MG/DL (10-40); CREATININE FOR GFR 0.75 MG/DL (0.55-1.30); ERYTHROCYTE SEDIMENTATION RATE 9 mm/hr (0-30); GLOMERULAR FILTRATION RATE > 60.0 (>39); GLUCOSE, FASTING 97 MG/DL (70-100); POTASSIUM SERUM 3.5 MEQ/L (3.5-5.1); SODIUM LEVEL 142 MEQ/L (136-145); TOTAL PROTEIN 6.4 GM/DL (6.4-8.2)
== END ==
LOC: M LAB REF 14:21
PROVIDERS: ATTEND Internal Medicine
DX: M34.9 Systemic sclerosis, unspecified (principal)

== ENCOUNTER → 2022-05-24 | Outpatient (CLI) | payer MEDICARE, OTHER ==
[~2022-05-24] MED LIST changes: +GABA-1171 PO
== END ==
LOC: M CARPUL 15:06
PROVIDERS: ATTEND Specialist
DX: I42.7 Cardiomyopathy due to drug and external agent (principal)

== ENCOUNTER → 2022-08-30 | Outpatient (CLI) | payer MEDICARE, OTHER | LOC: M WHC 10:31 | PROVIDERS: ATTEND Specialist | DX: C50.919 Malignant neoplasm of unspecified site of unspecified female breast (principal) ==

== ENCOUNTER → 2022-09-24 | Outpatient (CLI) | payer MEDICARE, OTHER | LOC: M CARPUL 14:00 | PROVIDERS: ATTEND Specialist | DX: I42.7 Cardiomyopathy due to drug and external agent (principal) ==

== ENCOUNTER → 2022-10-29 | Outpatient (REF) | payer MEDICARE, OTHER ==
[~2022-10-29] MED LIST changes: +[UNRECOGNIZED DRUG - CODE] PO
== END ==
LOC: M LAB REF 09:32
PROVIDERS: ATTEND Physician Assistant
DX: R06.02 Shortness of breath (principal)

== ENCOUNTER → 2022-10-29 | Outpatient (CLI) | payer MEDICARE, OTHER ==
[~2022-10-29] MED LIST changes: +GASTROGRAFIN SOLUTION 30ML As Ordered ONE; +ISOVUE-370 76% 100ML VIAL As Ordered ONE
== END ==
LOC: M RAD 12:58
PROVIDERS: ATTEND Internal Medicine Hematology & Oncology
DX: C50.919 Malignant neoplasm of unspecified site of unspecified female breast (principal); R06.02 Shortness of breath

== ENCOUNTER → 2022-12-25 | Outpatient (REF) | payer MEDICARE, OTHER ==
[~2022-12-25] MED LIST changes: +CIPR500T39; +FURO20TA2; -GASTROGRAFIN SOLUTION 30ML As Ordered ONE; -HYDR200T3 PO; +HYDR200T46 PO; -ISOVUE-370 76% 100ML VIAL As Ordered ONE; +METR-265
[2022-12-25 11:13] LABS: BASO % 0.3 % (0.0-1.0); EOS % 0.2 % (0.0-3.0); HEMATOCRIT 36.9 % (36.0-47.0); HEMOGLOBIN 11.1 g/dl (12.0-15.5); LYMPH # 1.6 10^3/uL (1.5-5.0); LYMPH % 28.3 % (24.0-44.0); MEAN CORPUSCULAR HEMOGLOBIN 25.6 pg (27.0-33.0); MEAN CORPUSCULAR HGB CONC 30.1 g/dl (32.0-36.5); MEAN CORPUSCULAR VOLUME 85.2 fl (80.0-96.0); MONO # 0.8 10^3/uL (0.0-0.8); MONO % 14.1 % (2.0-8.0); NEUTROPHILS # 3.2 10^3/uL (1.5-8.5); NEUTROPHILS % 56.4 % (36.0-66.0); RED BLOOD COUNT 4.33 10^6/uL (4.00-5.40); WHITE BLOOD COUNT 5.8 10^3/uL (4.0-10.0)
[2022-12-25 11:27] LABS: PLATELET COUNT, AUTOMATED 70 10^3/uL (150-450)
[2022-12-25 11:29] LABS: HEMOGLOBIN A1c 4.6 % (4.0-6.0)
[2022-12-25 12:13] LABS: ALBUMIN 4.2 G/DL (3.2-5.2); ALKALINE PHOSPHATASE 74 U/L (46-116); ALT/SGPT < 9 U/L (7.0-40); AST/SGOT 8 U/L (<34); BILIRUBIN,TOTAL 0.9 MG/DL (0.3-1.2); BLOOD UREA NITROGEN 13 MG/DL (9-23); CALCIUM LEVEL 9.4 MG/DL (8.3-10.6); CARBON DIOXIDE LEVEL 26 MMOL/L (20-31); CHLORIDE LEVEL 109 MMOL/L (98-107); CHOLESTEROL LEVEL 115 MG/DL (<200); CHOLESTEROL RISK RATIO 2.15 (<5); CREATININE FOR GFR 0.71 MG/DL (0.55-1.30); GLOMERULAR FILTRATION RATE > 60.0 (>39); GLUCOSE, FASTING 98 MG/DL (74-106); HDL CHOLESTEROL 53.3 MG/DL (>40); LDL CHOLESTEROL 39.9 MG/DL (<100); NON-HDL-C 61.7 MG/DL; POTASSIUM SERUM 3.7 MMOL/L (3.5-5.1); SODIUM LEVEL 140 MMOL/L (136-145); TOTAL 25(OH) VITAMIN D 29.1 NG/ML (20.0-100.0); TOTAL PROTEIN 6.6 G/DL (5.7-8.2); TRIGLYCERIDES LEVEL 109 MG/DL (<150); VITAMIN B12 LEVEL 509 PG/ML (211-911)
== END ==
LOC: M LAB REF 10:35
PROVIDERS: ATTEND Nurse Practitioner Family
DX: E55.9 Vitamin D deficiency, unspecified (principal); Z00.00 Encounter for general adult medical examination without abnormal findings; R73.09 Other abnormal glucose; Z13.220 Encounter for screening for lipoid disorders

== ENCOUNTER → 2023-02-18 | Outpatient (CLI) | payer MEDICARE, OTHER ==
[~2023-02-18] MED LIST changes: +ISOVUE-370 76% 100ML VIAL As Ordered ONE; -LIDO1CRE42 TOP; +LIDO30CR18 TOP
== END ==
LOC: M RAD 11:08
PROVIDERS: ATTEND Specialist
DX: C50.919 Malignant neoplasm of unspecified site of unspecified female breast (principal)
CPT/HCPCS: 71260; Q9967

== ENCOUNTER → 2023-05-13 | Outpatient (REF) | payer MEDICARE, OTHER ==
[~2023-05-13] MED LIST changes: -ISOVUE-370 76% 100ML VIAL As Ordered ONE
[2023-05-13 15:50] LABS: APPEARANCE, URINE CLEAR (CLEAR); BACTERIA, URINE AUTO NEGATIVE (NEGATIVE); BILIRUBIN, URINE AUTO NEGATIVE (NEGATIVE); BLOOD, URINE BLOOD 1+ (NEGATIVE); COLOR, URINE YELLOW (YELLOW); GLUCOSE, URINE (UA) AUTO NEGATIVE (NEGATIVE); KETONE, URINE AUTO NEGATIVE (NEGATIVE); LEUKOCYTE ESTERASE, URINE AUTO TRACE (NEGATIVE); NITRITE, URINE AUTO NEGATIVE (NEGATIVE); PROTEIN, URINE AUTO NEGATIVE (NEGATIVE); RBC, URINE AUTO 2 /HPF (0-3); SPECIFIC GRAVITY URINE AUTO 1.011 (1.002-1.035); SQUAMOUS EPITHELIAL CELL UR AU 0 /HPF (0-6); UROBILINOGEN, URINE AUTO 0.2 mg/dL (0.0-2.0); WBC, URINE AUTO 2 /HPF (0-3)
[2023-05-13 15:55] LABS: HEMATOCRIT 33.4 % (36.0-47.0); MEAN CORPUSCULAR HEMOGLOBIN 24.8 pg (27.0-33.0); MEAN CORPUSCULAR HGB CONC 29.9 g/dl (32.0-36.5); MEAN CORPUSCULAR VOLUME 82.9 fl (80.0-96.0); RED BLOOD COUNT 4.03 10^6/uL (4.00-5.40); WHITE BLOOD COUNT 5.1 10^3/uL (4.0-10.0)
[2023-05-13 16:08] LABS: PLATELET COUNT, AUTOMATED 58 10^3/uL (150-450)
[2023-05-13 16:12] LABS: TOTAL PROTEIN,RANDOM URINE 17.7 MG/DL (0.0-14.0)
[2023-05-13 16:17] LABS: C REACTIVE PROTEIN QUANTITATIV < 0.40 MG/DL (<1.0); CREATININE,RANDOM URINE 50.2 MG/DL
[2023-05-13 16:19] LABS: ALBUMIN 3.7 G/DL (3.2-5.2); ALKALINE PHOSPHATASE 78 U/L (46-116); ALT/SGPT < 9 U/L (7.0-40); AST/SGOT 13 U/L (<34); BILIRUBIN,DIRECT 0.3 MG/DL (<0.4); BILIRUBIN,TOTAL 0.7 MG/DL (0.3-1.2); BLOOD UREA NITROGEN 12 MG/DL (9-23); CALCIUM LEVEL 7.9 MG/DL (8.3-10.6); CARBON DIOXIDE LEVEL 23 MMOL/L (20-31); CHLORIDE LEVEL 112 MMOL/L (98-107); CREATININE FOR GFR 0.67 MG/DL (0.55-1.30); GLOMERULAR FILTRATION RATE > 60.0 (>39); GLUCOSE, FASTING 81 MG/DL (74-106); IRON (FE) 21 UG/DL (50-170); POTASSIUM SERUM 3.6 MMOL/L (3.5-5.1); SODIUM LEVEL 144 MMOL/L (136-145); TOTAL PROTEIN 6.5 G/DL (5.7-8.2)
[2023-05-13 16:20] LABS: COMPLEMENT C3 105.6 MG/DL (90.0-170.0); COMPLEMENT C4 25.7 MG/DL (12-36)
[2023-05-13 16:21] LABS: TOTAL 25(OH) VITAMIN D 26.2 NG/ML (20.0-100.0)
[2023-05-13 18:06] LABS: ATYPICAL LYMPH 2 % (0-5); BASOPHILS 1 % (0-1); EOSINOPHILS 3 % (0-3); LYMPHOCYTES 31 % (16-44); MONOCYTES 20 % (0-5); NEUTROPHILS 42 % (28-66)
[2023-05-13 18:07] LABS: PLATELET ESTIMATE DECREASED (NORMAL)
[2023-05-13 18:13] LABS: GIANT PLATELETS 1+
[2023-05-13 18:14] LABS: ANISOCYTOSIS 1+
[2023-05-13 18:22] LABS: ERYTHROCYTE SEDIMENTATION RATE 6 mm/hr (0-30)
== END ==
LOC: M LAB REF 15:23
PROVIDERS: ATTEND Internal Medicine
DX: M34.9 Systemic sclerosis, unspecified (principal); E55.9 Vitamin D deficiency, unspecified; Z79.899 Other long term (current) drug therapy; M79.10 Myalgia, unspecified site; D50.9 Iron deficiency anemia, unspecified

== ENCOUNTER → 2023-07-17 | Outpatient (REF) | payer MEDICARE, OTHER ==
[~2023-07-17] MED LIST changes: +BACL1TAB9 PO; +CENT1TAB PO; -FURO20TA2; +FURO20TA2 PO; -SILD20TA11; +SILD20TA11 PO
== END ==
LOC: M LAB REF 11:02
PROVIDERS: ATTEND Internal Medicine Pulmonary Disease
DX: J84.9 Interstitial pulmonary disease, unspecified (principal); R06.02 Shortness of breath

== ENCOUNTER → 2023-07-17 | Outpatient (REF) | payer MEDICARE, OTHER ==
[2023-07-17 11:34] LABS: BASO % 0.6 % (0.0-1.0); EOS % 0.3 % (0.0-3.0); HEMATOCRIT 34.1 % (36.0-47.0); HEMOGLOBIN 10.1 g/dl (12.0-15.5); LYMPH # 1.5 10^3/uL (1.5-5.0); LYMPH % 42.7 % (24.0-44.0); MEAN CORPUSCULAR HGB CONC 29.6 g/dl (32.0-36.5); MONO # 0.7 10^3/uL (0.0-0.8); MONO % 18.7 % (2.0-8.0); NEUTROPHILS # 1.3 10^3/uL (1.5-8.5); NEUTROPHILS % 37.1 % (36.0-66.0); RED BLOOD COUNT 4.21 10^6/uL (4.00-5.40); WHITE BLOOD COUNT 3.6 10^3/uL (4.0-10.0)
[2023-07-17 11:35] LABS: PLATELET COUNT, AUTOMATED 58 10^3/uL (150-450)
[2023-07-17 12:50] LABS: ALBUMIN 3.8 G/DL (3.2-5.2); ALKALINE PHOSPHATASE 70 U/L (46-116); ALT/SGPT < 9 U/L (7.0-40); AST/SGOT 14 U/L (<34); BLOOD UREA NITROGEN 14 MG/DL (9-23); CALCIUM LEVEL 7.6 MG/DL (8.3-10.6); CARBON DIOXIDE LEVEL 26 MMOL/L (20-31); CHLORIDE LEVEL 112 MMOL/L (98-107); CHOLESTEROL LEVEL 123 MG/DL (<200); CHOLESTEROL RISK RATIO 2.16 (<5); CREATININE FOR GFR 0.67 MG/DL (0.55-1.30); FREE T4 1.08 NG/DL (0.89-1.76); GLOMERULAR FILTRATION RATE > 60.0 (>39); GLUCOSE, FASTING 82 MG/DL (74-106); HDL CHOLESTEROL 56.8 MG/DL (>40); NON-HDL-C 66.2 MG/DL; SODIUM LEVEL 144 MMOL/L (136-145); THYROID STIMULATING HORMONE 1.209 uIU/ML (0.55-4.78); TOTAL PROTEIN 6.5 G/DL (5.7-8.2); TRIGLYCERIDES LEVEL 86 MG/DL (<150)
== END ==
LOC: M LAB REF 11:04
PROVIDERS: ATTEND Nurse Practitioner Family
DX: E78.5 Hyperlipidemia, unspecified (principal); F32.9 Major depressive disorder, single episode, unspecified; C50.919 Malignant neoplasm of unspecified site of unspecified female breast; M85.80 Other specified disorders of bone density and structure, unspecified site

== ENCOUNTER → 2023-07-28 | Outpatient (CLI) | payer MEDICARE, OTHER ==
[~2023-07-28] MED LIST changes: +ISOVUE-370 76% 100ML VIAL ONE
== END ==
LOC: M PLAIMG 10:26
PROVIDERS: ATTEND Internal Medicine Medical Oncology
DX: C50.919 Malignant neoplasm of unspecified site of unspecified female breast (principal)
CPT/HCPCS: 71260; Q9967

== ENCOUNTER → 2023-09-18 | Outpatient (REF) | payer MEDICARE, OTHER ==
[~2023-09-18] MED LIST changes: -ISOVUE-370 76% 100ML VIAL ONE
[2023-09-18 13:07] LABS: PERCENT SATURATION 5.4 % (13.2-45.0); TOTAL 25(OH) VITAMIN D 37.5 NG/ML (20.0-100.0)
== END ==
LOC: M LAB REF 11:39
PROVIDERS: ATTEND Internal Medicine
DX: D50.8 Other iron deficiency anemias (principal); E55.9 Vitamin D deficiency, unspecified

== ENCOUNTER → 2023-09-24 | Outpatient (CLI) | payer MEDICARE, OTHER ==
[~2023-09-24] MED LIST changes: +ISOVUE-300 61% 100ML VIAL As Ordered ONE; +LIDOCAINE 1% MDV 20ML VIAL As Ordered ONE; +methylPREDNISolone SUSP 40MG/ML 1ML VIAL (DEPO MEDROL) As Ordered ONE
== END ==
LOC: M RAD 13:06
PROVIDERS: ATTEND Physician Assistant
DX: M16.11 Unilateral primary osteoarthritis, right hip (principal)
CPT/HCPCS: 20610; 77002; J1010; Q9967

== ENCOUNTER → 2023-09-30 | Outpatient (CLI) | payer MEDICARE, OTHER ==
[~2023-09-30] MED LIST changes: -ISOVUE-300 61% 100ML VIAL As Ordered ONE; -LIDOCAINE 1% MDV 20ML VIAL As Ordered ONE; -methylPREDNISolone SUSP 40MG/ML 1ML VIAL (DEPO MEDROL) As Ordered ONE
== END ==
LOC: M RAD 11:30
PROVIDERS: ATTEND Internal Medicine Pulmonary Disease
DX: J84.9 Interstitial pulmonary disease, unspecified (principal)
CPT/HCPCS: 71046; 78582; A9540; A9567

== ENCOUNTER → 2023-10-27 | Outpatient (CLI) | payer MEDICARE, OTHER ==
[~2023-10-27] MED LIST changes: +ROSU5TAB40 PO; -ROSU5TAB5 PO
== END ==
LOC: M CARPUL 09:24
PROVIDERS: ATTEND Specialist
DX: C50.919 Malignant neoplasm of unspecified site of unspecified female breast (principal)

== ENCOUNTER → 2023-11-03 | Outpatient (REF) | payer MEDICARE, OTHER | LOC: M LAB REF 11:49 | PROVIDERS: ATTEND Internal Medicine | DX: Z79.899 Other long term (current) drug therapy (principal) ==

== ENCOUNTER → 2023-11-19 | Outpatient (CLI) | payer MEDICARE, OTHER ==
[~2023-11-19] MED LIST changes: +ISOVUE-370 76% 100ML VIAL As Ordered ONE
== END ==
LOC: M RAD 09:10
PROVIDERS: ATTEND Internal Medicine Hematology & Oncology
DX: C34.90 Malignant neoplasm of unspecified part of unspecified bronchus or lung (principal)
CPT/HCPCS: 71260; Q9967

== ENCOUNTER → 2024-03-23 | Outpatient (REF) | payer MEDICARE, OTHER ==
[~2024-03-23] MED LIST changes: -ISOVUE-370 76% 100ML VIAL As Ordered ONE; +K-PHTAB4 PO
== END ==
LOC: M SFHCRHEU 13:24
PROVIDERS: ATTEND Internal Medicine
DX: M34.9 Systemic sclerosis, unspecified (principal)

== ENCOUNTER → 2024-03-31 | Outpatient (CLI) | payer MEDICARE, OTHER | LOC: M RAD 14:13 | PROVIDERS: ATTEND Physician Assistant | DX: M47.816 Spondylosis without myelopathy or radiculopathy, lumbar region (principal) ==

== ENCOUNTER → 2024-03-31 | Outpatient (CLI) | payer MEDICARE, OTHER | LOC: M RAD 14:10 | PROVIDERS: ATTEND Internal Medicine | DX: M89.8X9 Other specified disorders of bone, unspecified site (principal) ==

== ENCOUNTER → 2024-03-31 | Outpatient (REF) | payer MEDICARE, OTHER ==
[2024-03-31 13:49] LABS: APPEARANCE, URINE CLEAR (CLEAR); BACTERIA, URINE AUTO 1+ (NEGATIVE); BILIRUBIN, URINE AUTO NEGATIVE (NEGATIVE); BLOOD, URINE BLOOD 1+ (NEGATIVE); COLOR, URINE YELLOW (YELLOW); GLUCOSE, URINE (UA) AUTO NEGATIVE (NEGATIVE); KETONE, URINE AUTO NEGATIVE (NEGATIVE); LEUKOCYTE ESTERASE, URINE AUTO TRACE (NEGATIVE); MUCUS, URINE SMALL (NEGATIVE); NITRITE, URINE AUTO NEGATIVE (NEGATIVE); PROTEIN, URINE AUTO NEGATIVE (NEGATIVE); RBC, URINE AUTO 3 /HPF (0-3); SPECIFIC GRAVITY URINE AUTO 1.006 (1.002-1.035); SQUAMOUS EPITHELIAL CELL UR AU 0 /HPF (0-6); UROBILINOGEN, URINE AUTO 0.2 mg/dL (0.0-2.0); WBC, URINE AUTO 5 /HPF (0-3)
[2024-03-31 13:55] LABS: BASO % 0.5 % (0.0-1.0); EOS % 0.5 % (0.0-3.0); HEMATOCRIT 37.3 % (36.0-47.0); HEMOGLOBIN 11.6 g/dl (12.0-15.5); LYMPH # 1.7 10^3/uL (1.5-5.0); LYMPH % 38.6 % (24.0-44.0); MEAN CORPUSCULAR HEMOGLOBIN 26.9 pg (27.0-33.0); MEAN CORPUSCULAR HGB CONC 31.1 g/dl (32.0-36.5); MEAN CORPUSCULAR VOLUME 86.3 fl (80.0-96.0); MONO # 0.8 10^3/uL (0.0-0.8); MONO % 17.4 % (2.0-8.0); NEUTROPHILS # 1.8 10^3/uL (1.5-8.5); NEUTROPHILS % 42.5 % (36.0-66.0); RED BLOOD COUNT 4.32 10^6/uL (4.00-5.40); WHITE BLOOD COUNT 4.3 10^3/uL (4.0-10.0)
[2024-03-31 13:58] LABS: PLATELET COUNT, AUTOMATED 65 10^3/uL (150-450)
[2024-03-31 14:06] LABS: ERYTHROCYTE SEDIMENTATION RATE 10 mm/hr (0-30)
[2024-03-31 14:11] LABS: TOTAL PROTEIN,RANDOM URINE 18.7 MG/DL (0.0-14.0)
[2024-03-31 14:16] LABS: CREATININE,RANDOM URINE 38.9 MG/DL
[2024-03-31 15:51] LABS: ALBUMIN 3.8 G/DL (3.2-5.2); ALKALINE PHOSPHATASE 95 U/L (46-116); ALT/SGPT < 9 U/L (7.0-40); AST/SGOT 10 U/L (<34); BILIRUBIN,DIRECT 0.4 MG/DL (<0.4); BILIRUBIN,TOTAL 1.3 MG/DL (0.3-1.2); BLOOD UREA NITROGEN 11 MG/DL (9-23); CALCIUM LEVEL 8.7 MG/DL (8.3-10.6); CARBON DIOXIDE LEVEL 26 MMOL/L (20-31); CHLORIDE LEVEL 109 MMOL/L (98-107); COMPLEMENT C3 119.7 MG/DL (90.0-170.0); COMPLEMENT C4 29.1 MG/DL (12-36); GLOMERULAR FILTRATION RATE > 60.0 (>32); GLUCOSE, FASTING 83 MG/DL (74-106); IMMUNOGLOBULIN A 171.4 MG/DL (40-350); IMMUNOGLOBULIN G 634 MG/DL (650-1600); POTASSIUM SERUM 3.8 MMOL/L (3.5-5.1); SODIUM LEVEL 139 MMOL/L (136-145); TOTAL PROTEIN 6.4 G/DL (5.7-8.2)
[2024-04-02 02:38] LABS: T P ELECTROPHORESIS SO 6.2 g/dL (6.1-8.1)
== END ==
LOC: M LAB REF 13:18
PROVIDERS: ATTEND Internal Medicine
DX: M34.9 Systemic sclerosis, unspecified (principal)

== ENCOUNTER → 2024-05-10 | Outpatient (CLI) | payer MEDICARE, OTHER ==
[~2024-05-10] MED LIST changes: -ROSU5TAB40 PO; +ROSU5TAB49 PO
== END ==
LOC: M CARPUL 13:14
PROVIDERS: ATTEND Internal Medicine Pulmonary Disease
DX: J84.9 Interstitial pulmonary disease, unspecified (principal); R06.02 Shortness of breath

== ENCOUNTER → 2024-06-01 | Outpatient (CLI) | payer MEDICARE, OTHER | LOC: M PLAIMG 11:02 | PROVIDERS: ATTEND Internal Medicine Pulmonary Disease | DX: R91.8 Other nonspecific abnormal finding of lung field (principal) ==

== ENCOUNTER → 2024-10-12 | Outpatient (CLI) | payer MEDICARE, OTHER ==
[~2024-10-12] MED LIST changes: +IRON1TAB2 PO; +PENT400T22
== END ==
LOC: M RAD 09:03
PROVIDERS: ATTEND Specialist
DX: M54.2 Cervicalgia (principal); R22.1 Localized swelling, mass and lump, neck; M79.89 Other specified soft tissue disorders

== ENCOUNTER → 2024-10-22 | Outpatient (CLI) | payer MEDICARE, OTHER ==
[~2024-10-22] MED LIST changes: +ISOVUE-370 76% 100ML VIAL As Ordered ONE
== END ==
LOC: M RAD 13:16
PROVIDERS: ATTEND Specialist
DX: C50.919 Malignant neoplasm of unspecified site of unspecified female breast (principal); E04.1 Nontoxic single thyroid nodule
CPT/HCPCS: 70491; 71260; Q9967

== ENCOUNTER → 2024-11-01 | Outpatient (CLI) | payer MEDICARE, OTHER ==
[~2024-11-01] MED LIST changes: -ISOVUE-370 76% 100ML VIAL As Ordered ONE
== END ==
LOC: M RAD 08:03
PROVIDERS: ATTEND Specialist
DX: C50.919 Malignant neoplasm of unspecified site of unspecified female breast (principal); E04.1 Nontoxic single thyroid nodule

== ENCOUNTER → 2024-11-08 | Outpatient (REF) | payer MEDICARE, OTHER ==
[~2024-11-08] MED LIST changes: +POTA-151 PO
[2024-11-08 15:07] LABS: CALCIUM LEVEL 8.5 MG/DL (8.3-10.6); CREATININE FOR GFR 0.65 MG/DL (0.55-1.30); GLOMERULAR FILTRATION RATE 88.4 (>32); POTASSIUM SERUM 3.2 MMOL/L (3.5-5.1)
[2024-11-08 15:11] LABS: TOTAL 25(OH) VITAMIN D 36.2 NG/ML (20.0-100.0)
== END ==
LOC: M LAB REF 13:22
PROVIDERS: ATTEND Internal Medicine
DX: Z79.899 Other long term (current) drug therapy (principal); M81.8 Other osteoporosis without current pathological fracture

== ENCOUNTER → 2025-03-17 | Outpatient (REF) | payer MEDICARE, OTHER ==
[~2025-03-17] MED LIST changes: -SILD20TA11 PO; +SILD20TA64 PO
[2025-03-17 14:25] LABS: APPEARANCE, URINE CLEAR (CLEAR); BACTERIA, URINE AUTO NEGATIVE (NEGATIVE); BILIRUBIN, URINE AUTO NEGATIVE (NEGATIVE); BLOOD, URINE BLOOD NEGATIVE (NEGATIVE); GLUCOSE, URINE (UA) AUTO NEGATIVE (NEGATIVE); KETONE, URINE AUTO NEGATIVE (NEGATIVE); LEUKOCYTE ESTERASE, URINE AUTO TRACE (NEGATIVE); MUCUS, URINE SMALL (NEGATIVE); NITRITE, URINE AUTO NEGATIVE (NEGATIVE); PROTEIN, URINE AUTO NEGATIVE (NEGATIVE); RBC, URINE AUTO 1 /HPF (0-3); SPECIFIC GRAVITY URINE AUTO 1.009 (1.002-1.035); SQUAMOUS EPITHELIAL CELL UR AU 0 /HPF (0-6); UROBILINOGEN, URINE AUTO 0.2 mg/dL (0.0-2.0); WBC, URINE AUTO 0 /HPF (0-3)
[2025-03-17 14:49] LABS: TOTAL PROTEIN,RANDOM URINE 18.5 MG/DL (0.0-14.0)
== END ==
LOC: M LAB REF 13:39
PROVIDERS: ATTEND Internal Medicine
DX: M34.9 Systemic sclerosis, unspecified (principal)

== ENCOUNTER → 2025-03-22 | Outpatient (REF) | payer MEDICARE, OTHER ==
[2025-03-22 15:12] LABS: BASO # 0.0 10^3/uL (0.0-0.2); BASO % 0.4 % (0.0-1.0); EOS # 0.0 10^3/uL (0.0-0.5); EOS % 0.2 % (0.0-3.0); LYMPH # 1.9 10^3/uL (1.5-5.0); LYMPH % 38.0 % (24.0-44.0); MONO # 0.9 10^3/uL (0.0-0.8); MONO % 18.2 % (2.0-8.0); NEUTROPHILS # 2.2 10^3/uL (1.5-8.5); NEUTROPHILS % 42.8 % (36.0-66.0)
[2025-03-22 15:22] LABS: PLATELET COUNT, AUTOMATED 54 10^3/uL (150-450)
[2025-03-22 16:00] LABS: ALT/SGPT 10 U/L (7.0-40); AST/SGOT 17 U/L (<34); C REACTIVE PROTEIN QUANTITATIV < 0.50 MG/DL (<1.0); CALCIUM LEVEL 7.5 MG/DL (8.3-10.6); CARBON DIOXIDE LEVEL 25 MMOL/L (20-31); CHLORIDE LEVEL 110 MMOL/L (98-107); CREATININE FOR GFR 0.99 MG/DL (0.55-1.30); GLOMERULAR FILTRATION RATE 57.3 (>32); POTASSIUM SERUM 3.6 MMOL/L (3.5-5.1); SODIUM LEVEL 145 MMOL/L (136-145)
[2025-03-22 16:02] LABS: COMPLEMENT C4 26.5 MG/DL (12-36)
[2025-03-24 10:26] LABS: T P ELECTROPHORESIS SO 6.3 g/dL (6.1-8.1)
[2025-03-26 17:12] LABS: COMPLEMENT TOTAL (CH50) 51 U/mL (31-60)
[2025-03-28 09:27] LABS: ALBUMIN SPEP 4.2 g/dL (3.8-4.8); ALPHA-1-GLOBULINS SO 0.3 g/dL (0.2-0.3); ALPHA-2-GLOBULINS SO 0.6 g/dL (0.5-0.9); BETA 2 GLOBULIN 0.3 g/dL (0.2-0.5); BETA-GLOBULIN SO 0.4 g/dL (0.4-0.6); GAMMA GLOBULINS SO 0.6 g/dL (0.8-1.7)
== END ==
LOC: M LAB REF 14:51
PROVIDERS: ATTEND Internal Medicine
DX: M34.9 Systemic sclerosis, unspecified (principal)

== ENCOUNTER → 2025-04-25 | Outpatient (CLI) | payer MEDICARE, OTHER | LOC: M RAD 09:53 | PROVIDERS: ATTEND Specialist | DX: E04.1 Nontoxic single thyroid nodule (principal) ==

== ENCOUNTER → 2025-04-26 | Outpatient (REF) | payer MEDICARE, OTHER ==
[2025-04-26 09:42] LABS: BASO # 0.0 10^3/uL (0.0-0.2); BASO % 0.4 % (0.0-1.0); EOS # 0.0 10^3/uL (0.0-0.5); EOS % 0.4 % (0.0-3.0); LYMPH # 1.8 10^3/uL (1.5-5.0); LYMPH % 37.7 % (24.0-44.0); MONO # 0.7 10^3/uL (0.0-0.8); MONO % 14.7 % (2.0-8.0); NEUTROPHILS # 2.2 10^3/uL (1.5-8.5); NEUTROPHILS % 46.6 % (36.0-66.0)
[2025-04-26 09:44] LABS: PLATELET COUNT, AUTOMATED 62 10^3/uL (150-450)
[2025-04-26 11:21] LABS: CALCIUM LEVEL 8.9 MG/DL (8.3-10.6); CARBON DIOXIDE LEVEL 25.0 MMOL/L (20-31); CHLORIDE LEVEL 109.0 MMOL/L (98-107); CREATININE FOR GFR 0.98 MG/DL (0.55-1.30); GLOMERULAR FILTRATION RATE 58.0 (>32); POTASSIUM SERUM 4.0 MMOL/L (3.5-5.1); SODIUM LEVEL 146.0 MMOL/L (136-145)
== END ==
LOC: M LAB REF 09:17
PROVIDERS: ATTEND Nurse Practitioner Family
DX: E16.2 Hypoglycemia, unspecified (principal); E87.6 Hypokalemia; D69.6 Thrombocytopenia, unspecified